=== PATIENT | male | born 1990 | race Two or more races ===

== ENCOUNTER 2022-05-19 11:54 | Emergency (ER) | payer OTHER ==
[~2022-05-19] VITALS: Ht 180.3 cm; Wt 72.7 kg
[2022-05-19] MEDS ORDERED: LEVE250T4 PO (15:12)
[2022-05-19] MEDS: KETOROLAC TROMETHAMINE 30 MG/ML VIAL IM ONE (15:38)
[2022-05-19 18:14] LABS: BASOPHILS % (AUTO) 0.9 % (0.0-2.0); EOSINOPHILS % (AUTO) 1.6 % (1.0-6.0); HEMATOCRIT 42.7 % (41-53); HEMOGLOBIN 14.2 g/dL (13.5-17.5); LYMPHOCYTES # (AUTO) 1.8 K/uL (1.0-4.8); LYMPHOCYTES % (AUTO) 28.7 % (22.0-44.0); MEAN CORPUSCULAR HEMOGLOBIN 28.9 pg (26.0-34.0); MEAN CORPUSCULAR HGB CONC 33.2 G/dL (31.0-37.0); MEAN CORPUSCULAR VOLUME 87 fL (80-100); MONOCYTES # (AUTO) 0.5 K/uL (0.1-1.0); MONOCYTES % (AUTO) 8.5 % (2.0-9.0); NEUTROPHILS # (AUTO) 3.8 K/uL (1.8-7.7); NEUTROPHILS % (AUTO) 60.3 % (40.0-70.0); PLATELET COUNT (AUTO) 201 K/uL (150-450); RED BLOOD CELL COUNT(AUTO) 4.91 MIL/uL (4.50-5.90); RED CELL DISTRIBUTION WIDTH 13.6 % (11.5-14.5)
[2022-05-19 18:20] LABS: ANION GAP 6 mmol/L (8-16); CALCIUM, TOTAL 9.4 mg/dL (8.8-10.5); CARBON DIOXIDE 32 mmol/L (22-29); CHLORIDE 103 mmol/L (98-107); GLOMERULAR FILTR. RATE CALC > 60 mL/min (>60); GLUCOSE,RANDOM 92 mg/dL (70-110); POTASSIUM 4.8 mmol/L (3.5-5.1); SODIUM SERUM 141 mmol/L (136-145); UREA NITROGEN, BLOOD 17 mg/dL (7-18)
[2022-05-19 18:26] LABS: ALANINE AMINOTRANSFERASE 156 U/L (12-78); ALBUMIN 4.3 g/dL (3.4-5.0); ALKALINE PHOSPHATASE 71 U/L (46-116); ASPARTATE AMINOTRANSFERASE 144 U/L (15-37); BILIRUBIN,TOTAL 0.6 mg/dL (0.1-1.0); TOTAL PROTEIN, SERUM 7.4 g/dL (6.4-8.2)
[2022-05-19 19:25] VITALS: BP 130/68
== END 2022-05-19 19:28 ==
LOC: EMS 11:54
DX: K40.90 Unilateral inguinal hernia, without obstruction or gangrene, not specified as recurrent (principal); Z86.69 Personal history of other diseases of the nervous system and sense organs; Z87.898 Personal history of other specified conditions
CPT/HCPCS: 99284; 74176; 80053; 85025; 36415; 96372; J1885

== ENCOUNTER 2024-08-02 03:48 | Inpatient (IN) | payer OTHER ==
[~2024-08-02] VITALS: Ht 180.3 cm; Wt 62.9 kg
[~2024-08-02 03:48] MED LIST: LEVE250T81 PO
[2024-08-02] MEDS: ONDANSETRON 4 MG TABLET PO ONE (04:14)
[2024-08-02] MEDS: ACETAMINOPHEN 500 MG TABLET PO ONE (04:14)
[2024-08-02] MEDS: FAMOTIDINE 20 MG TABLET PO ONE (04:14)
[2024-08-02] MEDS: MAG HYDROX/ALUMINUM HYD/SIMETH 30 ML SUSPENSION UDCUP PO ONE (04:14)
[2024-08-02 04:38] LABS: BASOPHILS % (AUTO) 1.3 % (0.0-2.0); EOSINOPHILS % (AUTO) 1.1 % (1.0-6.0); HEMATOCRIT 35.9 % (41-53); HEMOGLOBIN 12.1 g/dL (13.5-17.5); LYMPHOCYTES # (AUTO) 1.5 K/uL (1.0-4.8); LYMPHOCYTES % (AUTO) 21.7 % (22.0-44.0); MEAN CORPUSCULAR HEMOGLOBIN 28.9 pg (26.0-34.0); MEAN CORPUSCULAR HGB CONC 33.7 G/dL (31.0-37.0); MEAN CORPUSCULAR VOLUME 86 fL (80-100); MONOCYTES # (AUTO) 0.5 K/uL (0.1-1.0); MONOCYTES % (AUTO) 7.8 % (2.0-9.0); NEUTROPHILS # (AUTO) 4.7 K/uL (1.8-7.7); NEUTROPHILS % (AUTO) 68.1 % (40.0-70.0); PLATELET COUNT (AUTO) 263 K/uL (150-450); RED CELL DISTRIBUTION WIDTH 14.1 % (11.5-14.5); WHITE BLOOD COUNT (AUTO) 6.9 K/uL (4.5-11.0)
[2024-08-02 04:40] LABS: ANION GAP 4 mmol/L (8-16); CALCIUM, TOTAL 8.5 mg/dL (8.8-10.5); CARBON DIOXIDE 31 mmol/L (22-29); CHLORIDE 103 mmol/L (98-107); CREATININE 0.87 mg/dL (0.60-1.30); GLOMERULAR FILTR. RATE CALC > 60 mL/min (>60); GLUCOSE,RANDOM 121 mg/dL (70-110); SODIUM SERUM 138 mmol/L (136-145); UREA NITROGEN, BLOOD 29 mg/dL (7-18)
[2024-08-02 04:49] LABS: ALCOHOL, BLOOD (SERUM) < 3 mg/dL (0-10)
[2024-08-02] MEDS ORDERED: ACETAMINOPHEN 325 MG TABLET PO PRN (05:45)
[2024-08-02] MEDS ORDERED: ONDANSETRON HCL 4 MG/2 ML VIAL IVP PRN (05:45)
[2024-08-02] MEDS ORDERED: MAGNESIUM HYDROXIDE SUSPENSION 30 ML UDCUP PO PRN (05:45)
[2024-08-02] MEDS ORDERED: ZOLPIDEM TARTRATE 5 MG TABLET PO PRN (05:45)
[2024-08-02] MEDS ORDERED: LORazepam 2 MG/ML VIAL IVP PRN (05:45)
[2024-08-02 08:36] VITALS: BP 133/78; PULSE 62; RESP 16; TEMP 98.3; O2SAT 98
[2024-08-02] MEDS: FAMOTIDINE 20 MG TABLET PO SCH (09:09)
[2024-08-02 20:06] VITALS: BP 110/56; PULSE 57; RESP 18; TEMP 97.1; O2SAT 96
[2024-08-03 05:17] VITALS: BP 124/57; PULSE 51; RESP 18; TEMP 97.8; O2SAT 95
[2024-08-03 07:39] VITALS: BP 119/74; PULSE 59; RESP 18; TEMP 98.4; O2SAT 99
[2024-08-03] MEDS: HEPARIN SODIUM,PORCINE 5,000 UNITS/ML VIAL SQ SCH (09:14)
[2024-08-03 14:02] LABS: APPEARANCE,URINE CLEAR (CLEAR); BILIRUBIN,URINE NEGATIVE (NEGATIVE); COLOR,URINE LIGHT YELLOW (YELLOW); GLUCOSE, URINE (UA) NEGATIVE (NEGATIVE); KETONES,URINE NEGATIVE (NEGATIVE); LEUKOCYTE ESTERASE ,URINE NEGATIVE (NEGATIVE); NITRATE,URINE NEGATIVE (NEGATIVE); OCCULT BLOOD,URINE NEGATIVE (NEGATIVE); PROTEIN,URINE NEGATIVE (NEGATIVE); SPECIFIC GRAVITIY, URINE 1.018 (1.003-1.030); UROBILINOGEN,URINE <=1.0 mg/dL (<=1.0)
[2024-08-03 14:08] LABS: ALCOHOL, URINE DRUG SCREEN NEGATIVE (NEGATIVE); AMPHET/METH SCREEN,URINE POSITIVE (NEGATIVE); BARBITURATE SCREEN, URINE NEGATIVE (NEGATIVE); BENZODIAZEPINES SCREEN,URINE NEGATIVE (NEGATIVE); CANNABINOID SCREEN,URINE NEGATIVE (NEGATIVE); COCAINE SCREEN,URINE NEGATIVE (NEGATIVE); METHADONE SCREEN, URINE NEGATIVE (NEGATIVE); OPIATE SCREEN,URINE NEGATIVE (NEGATIVE); PHENCYCLIDINE SCREEN,URINE NEGATIVE (NEGATIVE)
[2024-08-03 15:24] VITALS: BP 109/53; PULSE 55; RESP 18; TEMP 98.1; O2SAT 97
[2024-08-03 20:22] VITALS: BP 113/55; PULSE 66; RESP 18; TEMP 97.7; O2SAT 93
[2024-08-04 04:52] VITALS: BP 105/58; PULSE 57; RESP 18; TEMP 97.9; O2SAT 96
[2024-08-04 07:39] VITALS: BP 123/69; PULSE 62; RESP 18; TEMP 97.3; O2SAT 99
[2024-08-04] MEDS ORDERED: FAMO20 PO (10:22)
[2024-08-04] MEDS ORDERED: ACET-2247 PO (10:23)
[2024-08-04] MEDS ORDERED: MAGN-169 PO (10:23)
== END 2024-08-04 14:41 | DRG 897 ==
LOC: EMS 03:54 → EDH 06:06 → 6S 07:40
PROVIDERS: ADMIT Internal Medicine; ATTEND Internal Medicine
DX: F11.13 Opioid abuse with withdrawal (principal); D64.9 Anemia, unspecified; F15.10 Other stimulant abuse, uncomplicated; Z79.899 Other long term (current) drug therapy
CPT/HCPCS: 80048; 80307; 81003; 85025; 99285; G0480; J1644; Q0162

== ENCOUNTER 2025-03-15 21:14 | Inpatient (IN) | payer OTHER ==
[~2025-03-15] VITALS: Ht 180.3 cm; Wt 75.0 kg
[~2025-03-15 21:14] MED LIST changes: +ACET-2247 PO; +FAMO20 PO; -LEVE250T81 PO; +MAGN-169 PO
[2025-03-15] MEDS: LORazepam 2 MG/ML VIAL IM ONE (23:59)
[2025-03-16] MEDS ORDERED: LORazepam 2 MG/ML VIAL IVP PRN (01:15)
[2025-03-16] MEDS ORDERED: ONDANSETRON HCL 4 MG/2 ML VIAL IVP PRN (01:15)
[2025-03-16 05:06] VITALS: BP 99/57; PULSE 75; RESP 17; TEMP 97.8; O2SAT 98
[2025-03-16] MEDS: HEPARIN SODIUM,PORCINE 5,000 UNITS/ML VIAL SQ SCH (08:00)
[2025-03-16] MEDS: DOCUSATE SODIUM 100 MG CAPSULE PO SCH (08:41)
[2025-03-16] MEDS: LORazepam 2 MG/ML VIAL IM ONE (10:02)
[2025-03-16] MEDS: DICYCLOMINE HCL 10 MG CAPSULE PO ONE (10:02)
[2025-03-16 20:20] VITALS: BP 153/74; PULSE 90; RESP 18; TEMP 99.1; O2SAT 98
[2025-03-17 05:20] VITALS: BP 141/92; PULSE 99; RESP 18; TEMP 98.2; O2SAT 97
[2025-03-17 08:19] VITALS: BP 133/70; PULSE 90; RESP 18; TEMP 98.1; O2SAT 99
[2025-03-17] MEDS: ACETAMINOPHEN 325 MG TABLET PO PRN (08:46)
[2025-03-17 09:37] LABS: APPEARANCE,URINE CLEAR (CLEAR); GLUCOSE, URINE (UA) NEGATIVE (NEGATIVE); LEUKOCYTE ESTERASE ,URINE NEGATIVE (NEGATIVE); NITRATE,URINE NEGATIVE (NEGATIVE); OCCULT BLOOD,URINE NEGATIVE (NEGATIVE); PH,URINE DRUG SCREEN 6.5 (5.0-8.0); SPECIFIC GRAVITIY, URINE 1.036 (1.003-1.030)
[2025-03-17 09:45] LABS: ALCOHOL, URINE DRUG SCREEN NEGATIVE (NEGATIVE); AMPHET/METH SCREEN,URINE POSITIVE (NEGATIVE); BARBITURATE SCREEN, URINE NEGATIVE (NEGATIVE); CANNABINOID SCREEN,URINE POSITIVE (NEGATIVE); COCAINE SCREEN,URINE NEGATIVE (NEGATIVE); METHADONE SCREEN, URINE NEGATIVE (NEGATIVE)
[2025-03-17 12:08] LABS: PLATELET COUNT (AUTO) 189 K/uL (150-450); RED BLOOD CELL COUNT(AUTO) 4.68 MIL/uL (4.50-5.90); RED CELL DISTRIBUTION WIDTH 12.5 % (11.5-14.5); WHITE BLOOD COUNT (AUTO) 5.6 K/uL (4.5-11.0)
[2025-03-17 12:20] LABS: CALCIUM, TOTAL 9.1 mg/dL (8.8-10.5); CREATININE 0.95 mg/dL (0.60-1.30); GLOMERULAR FILTR. RATE CALC > 60 mL/min (>60); GLUCOSE,RANDOM 95 mg/dL (70-110); SODIUM SERUM 136 mmol/L (136-145); UREA NITROGEN, BLOOD 17 mg/dL (7-18)
[2025-03-17 12:24] LABS: ASPARTATE AMINOTRANSFERASE 102 U/L (15-37); TOTAL PROTEIN, SERUM 7.0 g/dL (6.4-8.2)
[2025-03-17 12:27] LABS: ALCOHOL, BLOOD (SERUM) < 3 mg/dL (0-10)
[2025-03-17 20:35] VITALS: BP 134/90; PULSE 101; RESP 18; TEMP 98.6; O2SAT 98
[2025-03-18 04:55] VITALS: BP 122/82; PULSE 78; RESP 18; TEMP 98.1; O2SAT 98
[2025-03-18 08:34] VITALS: BP 126/80; PULSE 95; RESP 18; TEMP 98; O2SAT 98
[2025-03-18] MEDS ORDERED: HYDR25TA83 PO (12:25)
== END 2025-03-18 19:44 | DRG 896 ==
LOC: EMS 21:15 → EDH 03-16 01:32 → 6S 03-16 05:12
PROVIDERS: ADMIT Internal Medicine; ATTEND Internal Medicine
DX: F11.13 Opioid abuse with withdrawal (principal); G92.9 Unspecified toxic encephalopathy; F15.121 Other stimulant abuse with intoxication delirium; B19.20 Unspecified viral hepatitis C without hepatic coma
CPT/HCPCS: 80048; 80076; 80307; 81003; 83735; 85025; 93005; 96372; 99285; G0480; J1644; J2060